=== PATIENT | male | born 1960 ===

== ENCOUNTER 2017-11-24 18:08 | Emergency (ER) | payer MEDICAID ==
[2017-11-24 18:17] VITALS: BP 147/112
[2017-11-24] MEDS ORDERED: AUGMENTIN 875 MG PO ONE (20:22)
[2017-11-24] MEDS ORDERED: ULTRAM PO ONE (20:22)
[2017-11-24] MEDS ORDERED: BOOSTRIX IM ONE (20:22)
[2017-11-24] MEDS ORDERED: NACL 0.9% IR ONE (20:22)
[2017-11-24] MEDS ORDERED: NACL 0.9% 1,000 ML IR ONE (20:38)
--- NOTE | 2017-11-24 21:03 | Emergency Department Report ---
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 right forearm approximately 2 hours ago and states he was walking on the street dog ran out and bit him on his arm nor is unknown puncture wound status for the right forearm no tendon or muscle involvement range of motion is intact bleeding resolved by direct pressure applied patient patient complains of 6/10 right forearm pain unknown last tetanus shot Complaint: animal bite Onset/Timin -: hour(s) Right: Forearm (puncture wound cx 4) Animal: dog Animal Control Notified: Yes Description: unknown animal Mechanism: bite Pain Description: sharp Severity scale (0 -10): 6 Context: unprovoked Treatments Prior to Arrival: wound dressing(s) - Related Data Patient Tetanus UTD: No Previous Rx's Medication Instructions Recorded Last Taken Type Amoxicillin/Potassium Clav 1 each PO BID #20 tablet 11/24/17 Unknown Rx [Augmentin 875-125 Tablet] traMADol [Ultram] 50 mg PO Q8HR PRN #15 tablet 11/24/17 Unknown Rx Allergies Allergy/AdvReac Type Severity Reaction Status Date / Time No Known Allergies Allergy Unverified 11/24/17 18:14 ED Review of Systems ROS: Stated complaint: RT ARM DOG BITE Other details as noted in HPI Constitutional: denies: chills, fever Eyes: denies: eye pain, eye discharge, vision change ENT: denies: ear pain, throat pain Respiratory: denies: cough, shortness of breath, wheezing Cardiovascular: denies: chest pain, palpitations Endocrine: no symptoms reported Gastrointestinal: denies: abdominal pain, nausea, diarrhea Genitourinary: denies: urgency, dysuria Musculoskeletal: other (puncture wounds right forearm x 4) Skin: other (dog bites puncture wounds ). denies: rash, lesions Neurological: denies: headache, weakness, paresthesias Psychiatric: denies: anxiety, depression Hematological/Lymphatic: denies: easy bleeding, easy bruising ED Past Medical Hx - Past Medical History Hx HIV: Yes - Surgical History Past Surgical History?: No - Social History Smoking Status: Current Every Day Smoker Substance Use Type: Alcohol - Medications Home Medications: Home Medications Medication Instructions Recorded Confirmed Last Taken Type Amoxicillin/Potassium Clav 1 each PO BID #20 tablet 11/24/17 Unknown Rx [Augmentin 875-125 Tablet] traMADol [Ultram] 50 mg PO Q8HR PRN #15 tablet 11/24/17 Unknown Rx ED Physical Exam - General Limitations: No Limitations General appearance: alert, in no apparent distress - Head Head exam: Present: atraumatic, normocephalic - Eye Eye exam: Present: normal appearance - ENT ENT exam: Present: mucous membranes moist - Neck Neck exam: Present: normal inspection - Respiratory Respiratory exam: Present: normal lung sounds bilaterally. Absent: respiratory distress - Cardiovascular Cardiovascular Exam: Present: regular rate, normal rhythm. Absent: systolic murmur, diastolic murmur, rubs, gallop - GI/Abdominal GI/Abdominal exam: Present: soft, normal bowel sounds - Rectal Rectal exam: Present: deferred - Extremities Exam Extremities exam: Present: normal inspection, full ROM, tenderness (righ forearm dog bite ), normal capillary refill. Absent: joint swelling - Expanded Upper Extremity Exam Right Forearm Wrist exam: Present: full ROM, tenderness, other (puncture wound right forearm ). Absent: swelling, abrasion, laceration, ecchymosis, deformity, crepidus, dislocation, erythema, tenderness over anatomical snuff box, pain with axial thumb loading Hand Wrist exam: Present: normal inspection, full ROM Neuro motor exam: Present: wrist extension intact, thumb opposition intact, thumb IP flexion intact, thumb adduction intact, fingers 2-5 abduction intact Neurosensory exam: Present: 2-point discrimination, radial nerve intact, ulnar nerve intact, median nerve intact Vascular: Present: normal capillary refill, radial pulse, brachial pulse, ulnar pulse. Absent: vascular compromise, Pallo, pulse deficit radial art, pulse deficit ulnar art, pulse deficit brachial art - Back Exam Back exam: Present: normal inspection, full ROM - Neurological Exam Neurological exam: Present: alert, oriented X3, CN II-XII intact, normal gait, reflexes normal. Absent: motor sensory deficit - Expanded Neurological Exam Expanded Patient oriented to: Present: person, place, time Speech: Present: fluid speech Sensory exam: Upper Extremity Light Touch: Normal, Upper Extremity Pin Prick: Normal, Upper Extremity Temperature: Normal, UE 2 Point Discrimination: Normal Motor strength exam: RUE: 5, LUE: 5 DTR: bicep (R): 2+, tricep (R): 2+ Best Eye Response ([place]): (4) open spontaneously Best Motor Response ([place]): (6) obeys commands Best Verbal Response ([place]): (5) oriented [place] Total: 15 - Psychiatric Psychiatric exam: Present: normal affect, normal mood - Skin Skin exam: Present: warm, dry, normal color, other (puncture wound as above ) ED Course Vital Signs 11/24/17 18:14 Temperature 99.2 F Pulse Rate 78 Respiratory 18 Rate Blood Pressure 147/112 O2 Sat by Pulse 98 Oximetry - Reevaluation(s) Reevaluation #1: Bone irrigated with copious saline and Betadine solution prior occasion with soap and water by patient at bedside sync there is no no nerve tendon or muscle damage x-rays show no fracture mild soft tissue air patient given tetanus and rabies immunization rabies gammaglobulin 1750 units injected into wound and right deltoid patient-sterile dressing applie, pt given wound care instructions. , patient will change daily patient tolerated this procedure with minimal distress patient verbalizes understanding and agreement with same 11/24/17 22:13 Critical care attestation.: If time is entered above; I have spent that time in minutes in the direct care of this critically ill patient, excluding procedure time. ED Disposition Clinical Impression: Dog bite of right forearm Qualifiers: Encounter type: initial encounter Qualified Code(s): S51.851A - Open bite of right forearm, initial encounter; W54.0XXA - Bitten by dog, initial encounter Disposition: DC-01 TO HOME OR SELFCARE Is pt being admited?: No Does the pt Need Aspirin: No Condition: Good Instructions: Animal Bite (ED) Additional Instructions: Rabies vacinations 0 -done , 3, 7, 14, follow up with pcp in 3 days for shot # 2 Prescriptions: Amoxicillin/Potassium Clav [Augmentin 875-125 Tablet] 1 each PO BID #20 tablet traMADol [Ultram] 50 mg PO Q8HR PRN #15 tablet PRN Reason: Pain Referrals: [facility] [Outside] - 3-5 Days Forms: Work/School Release Form(ED) Time of Disposition: 22:20
[2017-11-24] MEDS ORDERED: RABAVERT RABIES VACCINE(PCEC) IM ONE (21:06)
[2017-11-24] MEDS ORDERED: hyperRAB S/D IM ONE ×2 (21:06→22:00)
--- NOTE | 2017-11-24 21:39 | XRay Report ---
FINAL REPORT PROCEDURE: XR FOREARM RT TECHNIQUE: RIGHT forearm radiographs, AP and lateral views. CPT 36612 HISTORY: puncture wound forearm COMPARISON: No prior studies are available for comparison. FINDINGS: Fracture (s) and/or Dislocation(s): None . Joint space(s): Normal . Soft tissues: Moderate degree soft tissue air is noted anteriorly in the mid and distal forearm.. Bone mineralization: Normal . Foreign bodies: None . IMPRESSION: Soft tissue air is noted. No radiopaque foreign bodies.
== END 2017-11-24 22:30 | disposition home or self-care (01) ==
LOC: ED 18:08
DX: S51.851A Open bite of right forearm, initial encounter (principal); F17.200 Nicotine dependence, unspecified, uncomplicated; Z21 Asymptomatic human immunodeficiency virus [HIV] infection status; W54.0XXA Bitten by dog, initial encounter; Y93.89 Activity, other specified; Y92.89 Other specified places as the place of occurrence of the external cause; Y99.8 Other external cause status
CPT/HCPCS: 90375; 90471; 90472; 90675; 90715; 96372